=== PATIENT | female | born 1985 | race Caucasian/White ===

== ENCOUNTER 2019-05-23 11:57 | Emergency (ER) | payer OTHER ==
[~2019-05-23] VITALS: Ht 165.1 cm; Wt 122.0 kg
[2019-05-23] MEDS ORDERED: ondansetron/PF 4mg/2ml inj IV ONE (12:35)
[2019-05-23] MEDS ORDERED: ketorolac tromethamine 15mg/ml inj. IV ONE (12:35)
[2019-05-23] MEDS ORDERED: normal saline 1000ML IV soln IVB ONE (12:35)
[2019-05-23 12:59] LABS: BASOPHILS % (AUTO) 0.3 % (0-1); EOSINOPHILS # (AUTO) 0.1 X10'3 (0-0.9); EOSINOPHILS % (AUTO) 0.8 % (0-6); HEMATOCRIT 42.6 % (35.0-45.0); HEMOGLOBIN 13.9 g/dl (12.0-16.0); LYMPHOCYTES # (AUTO) 1.5 X10'3 (1.1-4.8); MEAN CORPUSCULAR HEMOGLOBIN 28.3 PG (27.0-31.0); MEAN CORPUSCULAR HGB CONC 32.6 g/dL (33.0-36.5); MEAN CORPUSCULAR VOLUME 86.7 FL (78-98); MEAN PLATELET VOLUME 9.3 FL (7.4-10.4); MONOCYTES # (AUTO) 0.6 X10'3 (0-0.9); MONOCYTES % (AUTO) 4.3 % (2-12); NEUTROPHILS % (AUTO) 83.6 % (42-75); PLATELET COUNT 376 X10'3 (140-440); RED BLOOD COUNT 4.91 X10'6 (4.20-5.60); RED CELL DISTRIBUTION WIDTH 14.3 % (11.5-14.5); WHITE BLOOD COUNT 13.2 X10'3 (4.5-11.0)
[2019-05-23 13:26] LABS: ALANINE AMINOTRANSFERASE 32 U/L (12-78); ALBUMIN 3.9 G/DL (3.4-5.0); ALKALINE PHOSPHATASE 84 IU/L (46-116); ANION GAP 10 (8-16); ASPARTATE AMINO TRANSFERASE 24 U/L (10-37); BILIRUBIN,TOTAL 0.4 MG/DL (0.1-1.0); BLOOD UREA NITROGEN 12 MG/DL (7-18); BUN/CREATININE RATIO 12.5 (6.6-38.0); CALCIUM 8.9 MG/DL (8.5-10.1); CHLORIDE 105 MMOL/L (99-107); CREATININE 0.96 MG/DL (0.40-0.90); GLUCOSE 132 MG/DL (70-104); SODIUM 138 MMOL/L (135-145); TOTAL CARBON DIOXIDE 23.4 MMOL/L (24-32); TOTAL PROTEIN 7.8 G/DL (6.4-8.2); eGFR 67 ML/MIN
[2019-05-23 13:34] LABS: URINE HCG NEGATIVE (NEG)
[2019-05-23 13:37] LABS: CLARITY,URINE SLIGHTLY CLOUDY (Clear); COLOR,URINE YELLOW (Yellow); GLUCOSE, URINE NEGATIVE (Neg); KETONES,URINE TRACE mg/dl (Neg); LEUKOCYTE ESTERASE ,URINE NEGATIVE (Neg); NITRITES, URINE NEGATIVE (Neg); OCCULT BLOOD,URINE LARGE (Neg); PROTEIN,URINE 30 mg/dl (Neg)
[2019-05-23 13:38] LABS: UA COLLECTION TYPE CLN CATCH MIDSTREAM
[2019-05-23 13:48] LABS: MUCUS STRANDS MODERATE /LPF (Neg)
[2019-05-23 13:50] LABS: BACTERIA,URINE 2+ /HPF (Neg); RBC,URINE 50-100 /HPF (0-2)
[2019-05-23 13:53] LABS: SQUAMOUS EPITHELIAL CELL,UR MANY /LPF (FEW)
[2019-05-23] MEDS ORDERED: HYDROcodone/acetaminophen 10/325mg tab PO ONE (14:50)
[2019-05-23] MEDS ORDERED: HYDROcodone/acetaminophen 5mg/325mg tablet PO ONE (15:55)
[2019-05-23 16:10] VITALS: BP 193/116
[2019-05-23] MEDS ORDERED: ONDA4TAB6 PO (16:27)
[2019-05-23] MEDS ORDERED: HYDR-4353 PO (16:27)
--- NOTE | 2019-05-23 16:53 | NUR ---
made MAHAD Todd aware of the high BPs on the patient and she appreciated the information but was not going to hold up the discharge because of them.
== END 2019-05-23 16:56 | disposition home or self-care (01) ==
LOC: ER 11:58
DX: N20.1 Calculus of ureter (principal); R11.2 Nausea with vomiting, unspecified; F12.90 Cannabis use, unspecified, uncomplicated; Z87.442 Personal history of urinary calculi; Z88.5 Allergy status to narcotic agent
CPT/HCPCS: 36415; 74176; 80053; 81001; 81025; 85025; 85610; 96361; 96374; 96375; 99284; J1885; J2405; J7030